=== PATIENT | female | born 1985 | race African-American/Black ===

== ENCOUNTER 2016-12-22 02:38 | Inpatient (IN) | payer MEDICAID ==
--- NOTE | ~2016-12-22 | PN ---
Unit #: [id number] #: [id number] Patient: KRYSTAL JEFFERY [id number] [facility] [address] [place] [address] [id number] I MR#: [id number] NAME: KRYSTAL JEFFERY ROOM: [facility] Age: 31 Sex: F Admission Date: 12/22/2016 : 1985 Attending Physician: Christiano Madrid M.D. Admitting Physician: Christiano Madrid M.D. Primary Care Physician: Primary Care Physician Carol MENDOZA NOTES DATE 12/25/2016 DISCUSSION Ms. Flores is a 31year-old female seen on 12/25/2016. The patient interviewed, chart reviewed. Obtained information from nursing staff. The patient was able to answer questions appropriately in short sentences. The patient reported that she would like to go home. The patient reports medication helping her complaining of tummy ache. The patient is scheduled to have a family session today. The patient is compliant with medication. Yesterday medication lowered to the patient's mood and behavior. The patient was able to sleep good, compliant with medication, no agitation. Currently on Lorazepam which was lowered to 1 mg at bedtime, Zyprexa 10 mg at bedtime, Cogentin 1 mg twice daily, Haldol was discontinued, Desyrel 100 mg at bedtime. Complete review of systems unremarkable. MENTAL STATUS EXAMINATION General appearance, the patient dressed in hospital attire. Attention span and concentration poor. Oriented to self and place. Mood and affect flat. Speech monotone. Thought process concrete. The patient denied any thoughts of harming self or others but somewhat guarded, paranoid, confused. Recent and remote memory fair to poor. Insight and judgement fair to poor. DIAGNOSES Psychosis NOS Rule out schizophrenia Rule our bipolar mood disorder ASSESSMENT/PLAN Advise to continue with current medication and therapeutic protocol. If needed consider further adjustment of medication. Dictated by... Guera Tucker/inder TD: 12/28/2016 01:42 JOB #: [id number] Unit #: [id number] #: [id number] Patient: KRYSTAL JEFFERY PEAADRIA PROGRESS NOTES Page 1 of 1 X Christiano Madrid MD X PROGRESS NOTE
--- NOTE | ~2016-12-22 | HP ---
Unit #: [id number] #: [id number] Patient: KRYSTAL JEFFERY [id number] [place] [address] [id number] MR#: [id number] NAME: KRYSTAL JEFFERY ROOM: 16 Age: 31 Sex: F Admission Date: 12/22/2016 : 1985 Attending Physician: Christiano Madrid M.D. Admitting Physician: Christiano Madrid M.D. Primary Care Physician: Primary Care Physician No HISTORY AND PHYSICAL HISTORY OF PRESENT ILLNESS Krystal is a 31 year old immigrant from an unknown country admitted to [address] [place] [address] with psychosis. She is a poor historian so her history is taken from her chart. Exam is limited and what little bit I can I can obtain from her is through her websphere architect. 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 PAST SURGICAL HISTORY Nothing known. ALLERGIES No known drug allergies. SOCIAL HISTORY It is unknown if she smokes, drinks alcohol or uses illicit drugs. FAMILY HISTORY Medically not known. REVIEW OF SYSTEMS She does not answer any questions appropriately. There have been no reports of nausea, vomiting or diarrhea. She has had no cough or increased temperature. Nursing staff did report a thick white vaginal discharge when they showered her. CURRENT MEDICATIONS 1. Desyrel 100 mg q.h.s. 2. Zyprexa 10 mg b.i.d. 3. Lorazepam 1 mg t.i.d. 4. Cogentin 1 mg t.i.d. 5. Haldol 5 mg t.i.d. 6. Milk of Magnesia p.r.n. 7. Maalox p.r.n. 8. Tylenol p.r.n. 9. Diflucan 150 mg q day times three doses PHYSICAL EXAMINATION GENERAL: Alert, thin, in no apparent distress. VITAL SIGNS: Blood pressure 122/76, heart rate 100, respirations 16, temperature 100.5. SKIN: Unable to assess. Unit #: [id number] #: [id number] Patient: KRYSTAL JEFFERY HEENT: Normocephalic. TMs not viewed. Oral and nasal passages clear. Conjunctivae clear. Pupils equal, round and reactive to clear. Left eye is sclerosed. Right pupil reactive to light. NECK: Supple without lymphadenopathy or thyromegaly. HEART: Unable to assess. LUNGS: Unable o assess. ABDOMEN: Soft, nontender. : Unable to assess. EXTREMITIES: Moves all extremities without focal deficit. NEUROLOGICAL: Unable to complete extended exam. IMPRESSION Psychiatric admission RECOMMENDATIONS PSYCHIATRIC: Per psychiatrist. MEDICAL: I see no contraindications to participating in facility's activities. MEDICAL PROGNOSIS Good. MEDICAL CONDITION Stable. Dictated by... Naila Garza P.A.-C. for Guera Terrazas/inder TD: 12/23/2016 22:53 JOB #: [id number] HISTORY AND PHYSICAL Page 1 of 1 X Naila Garza X HISTORY AND PHYSICAL
--- NOTE | ~2016-12-22 | PN ---
Unit #: [id number] #: [id number] Patient: KRYSTAL JEFFERY [id number] [facility] [address] [place] [address] [id number] I MR#: [id number] NAME: KRYSTAL JEFFERY ROOM: [facility] Age: 31 Sex: F Admission Date: 12/22/2016 : 1985 Attending Physician: Christiano Madrid M.D. Admitting Physician: Christiano Madrid M.D. Primary Care Physician: Primary Care Physician Carol MENDOZA NOTES DATE OF SERVICE 12/23/2016 DISCUSSION Patient dressed in hospital attire. Mood sad, dysphoric, flat affect, guarded. Patient was staring, refused to answer any questions. Patient also speaks a different language, but almost guarded, flat affect, but compliant with medication this morning and compliant with eating. Needing redirection, confused, isolative, making needs known, showing some improvement but still guarded, paranoid. COMPLETE REVIEW OF SYSTEMS Unremarkable. MENTAL STATUS EXAMINATION GENERAL APPEARANCE: Patient dressed in hospital attire. ATTENTION SPAN AND CONCENTRATION: Poor. ORIENTATION: Unable to assess. MOOD AND AFFECT: Flat. SPEECH: Nonverbal at this time. THOUGHT PROCESS/THOUGHT CONTENT: Guarded, paranoid, attending to internal stimuli. RECENT AND REMOTE MEMORY: Poor. INSIGHT AND JUDGMENT: Impaired. DIAGNOSES Psychosis, NOS Rule out schizophrenia, chronic, paranoid type ASSESSMENT/PLAN Advise to continue with current medication and therapeutic protocol. Plan to get more information with the help of primer inserting machine adjuster. At this time, patient refusing to talk. Continue with the inpatient programming for safety. Dictated by... Christiano Madrid M.D. [facility] [place] Unit #: [id number] #: [id number] Patient: KRYSTAL JEFFERY TD: 12/24/2016 02:49 JOB #: [id number] CHELA MENDOZA NOTES Page 1 of 1 X Christiano Madrid MD PROGRESS NOTE
--- NOTE | ~2016-12-22 | PA ---
Unit #: [id number] #: [id number] Patient: KRYSTAL JEFFERY [id number] [facility] [address] [place] [address] [id number] I MR#: [id number] NAME: KRYSTAL JEFFERY ROOM: P116 Age: 31 Sex: F Admission Date: 12/22/2016 : 1985 Date of Assessment: 12/22/2016 Attending Physician: Christiano Madrid M.D. Admitting Physician: Christiano Madrid M.D. Primary Care Physician: Primary Care Physician No PSYCHIATRIC ASSESSMENT INFORMANTS The patient's reliability, poor; chart reliability, good. CHIEF COMPLAINT None but presentation with psychosis. HISTORY OF PRESENT ILLNESS Ms. Danielle is a 31-year-old female, unable to give any reliable information, presented with psychotic symptom. The patient speaks Swahili. [place] The patient was at [facility] a week ago due to similar behavior. The patient was prescribed Ativan to help her sleep. The patient has one pill left. The patient did not participate in assessment. She has kicked the information security architect, spit on the nurses. The patient according to the was talking to TV, not eating, throwing items, confused, paranoid, exhibiting bizarre behavior, bizarre thought process. The patient when seen in the hospital was agitated, psychotic, aggressive. Needed Haldol 10 mg, Cogentin 1 mg, Ativan 1 mg IM. The patient moved to .. one and half years ago. Lived in [place] for 3 months. Family support in [place] with . The patient needing inpatient admission at this time for psychiatric stabilization. PAST PSYCHIATRIC HISTORY Remarkable for history of previous treatment as mentioned above. No other details known at this time. FAMILY HISTORY AND SOCIAL HISTORY The patient has a good support system. No known history of any abuse. No family psychiatric illness available at this time. MEDICAL HISTORY Unremarkable for any chronic medical illness. Musculoskeletal; muscle strength and tone, no atrophy or abnormal movement. Gait normal. MEDICATION HISTORY None. ALLERGIES No known drug allergies. SUBSTANCE ABUSE HISTORY None. Unit #: [id number] #: [id number] Patient: BADISIRE,KRYSTAL REVIEW OF SYSTEMS HEENT: Eyes, clear. Ears, nose, mouth, and throat; clear. CARDIOVASCULAR: Unremarkable. RESPIRATORY: Unremarkable. GI: Unremarkable. : Unremarkable. SKIN: Unremarkable. LYMPH NODE: Unremarkable. NEUROLOGIC: Unremarkable. ENDOCRINE: Unremarkable. HEMATOLOGIC: Unremarkable. ALLERGIC/IMMUNOLOGIC: Unremarkable. MUSCULOSKELETAL: Muscle strength and tone, no atrophy or abnormal movement. Gait normal. MENTAL STATUS EXAMINATION CONSTITUTIONAL: Measurement of vital signs; temperature 100.5, pulse 103, respirations 18, blood pressure 123/76. GENERAL APPEARANCE: The patient dressed casually. The patient did not show any facial deformity. MUSCULOSKELETAL: Please see above. PSYCHIATRIC EXAMINATION Description of speech; nonverbal, at this time not talking. Description of thought process, unable to assess. Description of association, guarded. Description of abnormal psychotic thinking; guarded, attending to internal stimuli, paranoid, disorganized behavior, disorganized thought process. Description of the patient's judgment; concerning everyday activity, poor. Social situation, poor. Concerning psychiatric condition, poor. Complete mental status examination; orientation, unable to assess. Recent and remote memory, unable to assess. Attention span and concentration, poor. Language, unable to assess. Fund of knowledge, unable to assess. Vocabulary, unable to assess. Mood and affect, labile. Insight and judgment, impaired. ASSETS AND LIABILITIES Assets; young age, good physical health, good support system. Liability; history of psychosis. ADMITTING DIAGNOSES Psychiatric: 1. Psychosis, not otherwise specified, F29.0. 2. Rule out schizophrenia, chronic paranoid type. 3. Rule out bipolar mood disorder. 4. Rule out substance abuse disorder. Secondary diagnosis: Deferred. Medical diagnosis: None. Stressors: Psychosocial stressors. PSYCHIATRIC PLAN AND TREATMENT GOAL 1. Advised to admit the patient on the inpatient unit. Provide safe, supportive, and structured environment. 2. Ordered labs; CBC, CMP, UA, UDS, and test. Unit #: [id number] #: [id number] Patient: KRYSTAL JEFFERY 3. Precaution for aggression, self-harm. 4. Advised to start the patient on Desyrel 100 mg at bedtime, Zyprexa 10 mg b.i.d., lorazepam 1 mg t.i.d., Cogentin 1 mg t.i.d., Haldol 5 mg t.i.d. Advised to hold medication if the patient too sleepy. The patient to attend all the programing. We will involve science interpreter to get more information from the patient. At this time, the patient is not talking. Treatment goal to attain euthymic mood, gain insight into her problem, and learn coping skills. DISCHARGE PLAN Plan to stabilize the patient and consider followup in outpatient program. ESTIMATED LENGTH OF STAY 2 weeks. Dictated by... Guera Tucker/suki TD: 12/23/2016 02:41 JOB #: [id number] PSYCHIATRIC ASSESSMENT Page 1 of 1 X Christiano Madrid MD X PSYCHIATRIC ASSESSMENT
--- NOTE | ~2016-12-22 | DS ---
Unit #: [id number] #: [id number] Patient: KRYSTAL JEFFERY [id number] [facility] [address] [place] [address] [id number] I MR#: [id number] NAME: KRYSTAL JEFFERY ROOM: [facility] Age: 31 Sex: F Admission Date: 12/22/2016 : 1985 Discharge Date: 12/27/2016 Attending Physician: Christiano Madrid M.D. Primary Care Physician: Primary Care Physician No DISCHARGE SUMMARY REASON FOR ADMISSION Psychosis. DIAGNOSTIC STUDIES LABORATORY RESULTS: Unremarkable. HOSPITAL COURSE The patient was admitted to inpatient unit on 12/22/2016 and discharged on 12/27/2016. The patient was treated on the inpatient unit with group therapy, individual therapy, medication management. The patient speaks Swahili, used administrative support specialist. The patient denied any suicidal or homicidal ideation. Showed improvement. Subsequently, the patient was discharged with a plan to follow up in outpatient program. DISCHARGE MEDICATIONS Desyrel 100 mg at bedtime for sleep, Cogentin 1 mg at bedtime for EPS symptom, Zyprexa 10 mg at bedtime for mood stabilization, Colace 100 mg b.i.d. for constipation. DISCHARGE DIAGNOSES Psychiatric: 1. Psychosis, not otherwise specified, F29.0. 2. Rule out schizophrenia, chronic paranoid type, F20.0. 3. Rule out bipolar mood disorder. Secondary diagnosis: Deferred. Medical diagnosis: None. Stressors: Psychosocial stressors. DISCHARGE INSTRUCTIONS The patient to follow up in outpatient clinic as per 7th grade social studies teacher. CONDITION ON DISCHARGE The patient was pleasant and cooperative. Denied any psychotic symptom or any suicidal ideation. PROGNOSIS Guarded. DIET AND ACTIVITY As tolerated. Unit #: [id number] #: [id number] Patient: KRYSTAL JEFFERY Dictated by... Guera Tucker/suki TD: 12/28/2016 05:55 JOB #: [id number] DISCHARGE SUMMARY Page 1 of 1 X Christiano Madrid MD X DISCHARGE SUMMARY
--- NOTE | ~2016-12-22 | PN ---
Unit #: [id number] #: [id number] Patient: KRYSTAL JEFFERY [id number] [facility] [address] [place] [address] [id number] I MR#: [id number] NAME: KRYSTAL JEFFERY ROOM: [facility] Age: 31 Sex: F Admission Date: 12/22/2016 : 1985 Attending Physician: Christiano Madrid M.D. Admitting Physician: Christiano Madrid M.D. Primary Care Physician: Primary Care Physician Carol YORK PROGRESS NOTES DATE OF SERVICE: 12/26/2016 DISCUSSION Ms. Danielle is a 31-year-old female, seen on 12/26/2016. The patient interviewed, chart reviewed, and obtained information from nursing staff. The patient continues to be guarded, paranoid, anxious, nervous, interviewed with the help of nursing informatics clinical analyst. The patient reports having problem with constipation for which magnesium citrate was advised. The patient continues to have thought blocking and paranoia, but maintained safe behavior, no aggression, isolative and guarded. REVIEW OF SYSTEMS Complete review of systems unremarkable. MENTAL STATUS EXAMINATION General appearance, the patient dressed in hospital attire. Attention span and concentration, fair. Oriented in self and place. Mood and affect, labile. Speech, regular rate. Thought process, circumstantial. Association, guarded and paranoid, but denied any thoughts of harming self or others. Recent and remote memory, poor. Insight and judgment, poor. DIAGNOSIS Schizophrenia, chronic paranoid type. ASSESSMENT AND PLAN Advised to continue with current medication and therapeutic protocol. If needed, consider further adjustment of medication. Dictated by... Guera Tucker/suki TD: 12/28/2016 01:11 JOB #: [id number] Unit #: [id number] #: [id number] Patient: KRYSTAL JEFFERY [place]A PROGRESS NOTES Page 1 of 1 X Christiano Madrid MD PROGRESS NOTE
--- NOTE | ~2016-12-22 | PN ---
Unit #: [id number] #: [id number] Patient: KRYSTAL JEFFERY [id number] [facility] [address] [place] [address] [id number] I MR#: [id number] NAME: KRYSTAL JEFFERY ROOM: [facility] Age: 31 Sex: F Admission Date: 12/22/2016 : 1985 Attending Physician: Christiano Madrid M.D. Admitting Physician: Christiano Madrid M.D. Primary Care Physician: Primary Care Physician Carol MENDOZA NOTES DATE 12/24/2016 DISCUSSION Ms. Flores is a 31-year-old female, seen on 12/24/2016. The patient was admitted with psychotic symptoms. The patient is making progress, able to communicate, able to communicate her needs. The patient speaks Swahili. She is able to use a few words. Still isolative, guarded, flat affect, dressed in hospital attire. No agitation or aggression. Vital signs, 97.6, 52, and 119/84. REVIEW OF SYSTEMS Complete review of systems unremarkable. MENTAL STATUS EXAMINATION General appearance: Patient dressed in hospital attire. Attention span and concentration, fair. Orientation, unable to assess. Mood and affect, flat, withdrawn. Speech, minimal. Thought process, circumstantial, guarded. Association, guarded, paranoid, attending to internal stimuli. Recent and remote memory, poor. Insight and judgment, poor. DIAGNOSES 1. Psychosis, NOS. 2. Rule out schizophrenia, chronic paranoid type. ASSESSMENT/PLAN Advised to continue with the current medication combination, if needed consider further adjustment of medication. Dictated by... Guera Tucker/dominique TD: 12/25/2016 07:31 JOB #: [id number] Unit #: [id number] #: [id number] Patient: KRYSTAL JEFFERY [place] PROGRESS NOTES Page 1 of 1 X Christiano Madrid MD PROGRESS NOTE
[2016-12-22 14:09] LABS: TMH HEPATITIS B SURFACE AG -JH Negative (Negative); TMH HEPATITIS C AB - JH Negative (Negative)
== END 2016-12-27 15:15 | disposition home or self-care (01) | DRG 885 ==
LOC: P1S 04:20 → P2L 04:20 → P1S 09:35 → P2L 12-25 18:01
PROVIDERS: Psychiatry & Neurology Psychiatry
DX: F29 Unspecified psychosis not due to a substance or known physiological condition (principal); F31.89 Other bipolar disorder; F20.0 Paranoid schizophrenia; F19.10 Other psychoactive substance abuse, uncomplicated; H54.42 Blindness, left eye, normal vision right eye
CPT/HCPCS: 86803; 87340; 87806; J0515; J1630; J2060

== ENCOUNTER 2017-01-02 04:00 | Inpatient (IN) | payer MEDICAID ==
--- NOTE | ~2017-01-02 | PN ---
Unit #: [id number] #: [id number] Patient: KRYSTAL JEFFERY [id number] [facility] [address] [place] [address] [id number] I MR#: [id number] NAME: KRYSTAL JEFFERY ROOM: [facility] Age: 32 Sex: F Admission Date: 01/02/2017 : 1985 Attending Physician: Christiano Madrid M.D. Admitting Physician: Christiano Madrid M.D. Primary Care Physician: Generic Doctor Not In System [facility] PROGRESS NOTES DATE OF SERVICE: 01/06/2017 DISCUSSION Ms. Danielle is a 31-year-old female, seen on 01/06/2017. The patient's affect was bright and mood good, but still guarded, paranoid, and flat affect. The patient reports medication is helping her, but still seclusive and isolative. No side effects from medication. The patient withdrawn and isolative. REVIEW OF SYSTEMS Complete review of systems unremarkable. MENTAL STATUS EXAMINATION General appearance, the patient dressed in hospital attire. Attention span and concentration, poor. Orientation in self and place. Mood and affect, labile. Speech; rapid, but slow in volume, increased in rate. Thought process; circumstantial, guarded, and paranoid. Still having problem with anxiety, delusions, and paranoia. Recent and remote memory, poor. Insight and judgment, poor. DIAGNOSES Psychosis, not otherwise specified; mood disorder, not otherwise specified; rule out bipolar mood disorder; and schizophrenia, chronic paranoid type. ASSESSMENT AND PLAN Advised to continue with current medication and therapeutic protocol. If needed, consider further adjustment of medication. Dictated by... Guera Tucker/suki TD: 01/06/2017 18:10 JOB #: [id number] Unit #: [id number] #: [id number] Patient: KRYSTAL JEFFERY [facility] PROGRESS NOTES Page 1 of 1 X Christiano Madrid MD PROGRESS NOTE
--- NOTE | ~2017-01-02 | PN ---
Unit #: [id number] #: [id number] Patient: KRYSTAL JEFFERY [id number] [facility] [address] [place] [address] [id number] I MR#: [id number] NAME: KRYSTAL JEFFERY ROOM: [facility] Age: 32 Sex: F Admission Date: 01/02/2017 : 1985 Attending Physician: Christiano Madrid M.D. Admitting Physician: Guera Tucker PROGRESS NOTES DATE OF SERVICE: 01/11/2017 DISCUSSION Ms. Flores is a 32-year-old female, seen on 01/11/2017. The patient interviewed, chart reviewed, and obtained information from nursing staff. The patient compliant and cooperative. Vital signs stable. The patient is tolerating medication fairly well. Still seclusive, isolative, and guarded, but no thoughts of harming self or others. REVIEW OF SYSTEMS Complete review of systems unremarkable. MENTAL STATUS EXAMINATION General appearance, the patient dressed in hospital attire. Attention span and concentration, fair. Oriented in place and person. Mood and affect, sad and depressed. Speech, monotone. Thought process, concrete. The patient denied any thoughts of harming self or others, but guarded. Recent and remote memory, poor. Insight and judgment, poor. DIAGNOSIS Bipolar mood disorder, not otherwise specified. ASSESSMENT AND PLAN Advised to continue with current medication and therapeutic protocol. If needed, consider further adjustment of medication. Dictated by... Guera Tucker/suki TD: 01/11/2017 13:17 JOB #: [id number] Unit #: [id number] #: [id number] Patient: KRYSTAL JEFFERY PROGRESS NOTES Page 1 of 1 X Christiano Madrid MD PROGRESS NOTE
--- NOTE | ~2017-01-02 | PN ---
Unit #: [id number] #: [id number] Patient: KRYSTAL JEFFERY [id number] [facility] [address] [place] [address] [id number] I MR#: [id number] NAME: KRYSTAL JEFFERY ROOM: [facility] Age: 32 Sex: F Admission Date: 01/02/2017 : 1985 Attending Physician: Christiano Madrid M.D. Admitting Physician: Guera Tucker PROGRESS NOTES DATE OF SERVICE: 01/09/2017 DISCUSSION Ms. Flores is a 32-year-old female, seen on 01/09/2017. The patient interviewed, chart reviewed, and obtained information from nursing staff. The patient is compliant, cooperative, still isolative, guarded, flat affect, but no thoughts of harming self or others. Redirectable, cooperative. REVIEW OF SYSTEMS Complete review of systems, unremarkable. MENTAL STATUS EXAMINATION General appearance, the patient dressed in hospital attire. Attention span and concentration, poor. Oriented in place and person. Mood and affect, sad and depressed. Speech, monotone. Thought process, concrete. Denied any thoughts of harming self or others, but guarded and paranoid. Recent and remote memory, poor. Insight and judgment, poor. DIAGNOSES 1. Mood disorder, not otherwise specified. 2. Psychosis, not otherwise specified. ASSESSMENT AND PLAN Advised to continue with current medication and therapeutic protocol. If needed, consider further adjustment of medication. Dictated by... Guera Tucker/suki TD: 01/10/2017 18:48 JOB #: [id number] Unit #: [id number] #: [id number] Patient: KRYSTAL JEFFERY [place] PROGRESS NOTES Page 1 of 1 X Christiano Madrid MD PROGRESS NOTE
--- NOTE | ~2017-01-02 | PN ---
Unit #: [id number] #: [id number] Patient: KRYSTAL JEFFERY [id number] [facility] [address] [place] [address] [id number] I MR#: [id number] NAME: KRYSTAL JEFFERY ROOM: P259 Age: 32 Sex: F Admission Date: 01/02/2017 : 1985 Attending Physician: Christiano Madrid M.D. Admitting Physician: Christiano Madrid M.D. Primary Care Physician: Generic Doctor Not In System [facility] PROGRESS NOTES DATE OF SERVICE: 01/07/2017 DISCUSSION Ms. Wiggins is a 32-year-old female, seen on 01/07/2017. The patient interviewed, chart reviewed, and obtained information from nursing staff. The patient is still guarded, isolative, flat affect, anxiety, and paranoia, but getting better. Tolerating medication fairly well. The patient reports that she would like to go to correction once she is discharged. REVIEW OF SYSTEMS Complete review of systems unremarkable. MENTAL STATUS EXAMINATION General appearance, the patient dressed in hospital attire. Attention span and concentration, fair. Oriented in place and person. Mood and affect, sad, dysphoric, and flat. Speech, monotone. Thought process, concrete. The patient was somewhat guarded and paranoid, but denied any thoughts of harming self or others. Recent and remote memory, poor. Insight and judgment, poor. DIAGNOSES Psychosis, not otherwise specified; mood disorder, not otherwise specified; rule out bipolar mood disorder; and rule out schizophrenia. ASSESSMENT AND PLAN Advised to continue with current medication and therapeutic protocol. If needed, consider further adjustment of medication. Dictated by... Guera Tucker/suki TD: 01/08/2017 20:07 JOB #: [id number] Unit #: [id number] #: [id number] Patient: KRYSTAL JEFFERY [place]A PROGRESS NOTES Page 1 of 1 X Christiano Madrid MD PROGRESS NOTE
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
--- NOTE | ~2017-01-02 | PN ---
Unit #: [id number] #: [id number] Patient: KRYSTAL JEFFERY [id number] [facility] [address] [place] [address] [id number] MR#: [id number] NAME: KRYSTAL JEFFERY ROOM: [facility] Age: 32 Sex: F Admission Date: 01/02/2017 : 1985 Attending Physician: Christiano Madrid M.D. Admitting Physician: Christiano Madrid M.D. Primary Care Physician: Generic Doctor Not In System [facility] PROGRESS NOTES DATE OF SERVICE 01/05/2017 DISCUSSION Ms. Flores is a 31-year-old female seen on 01/05/2017. The patient interviewed, chart reviewed. Obtained information from nursing staff. The patient compliant, cooperative. Mood sad, dysphoric, flat affect, guarded. The patient was interviewed with the help of wood boatbuilder. Seemed somewhat better but still paranoia, guarded, isolative. Some delusional period. The patient reported that she wants to get away from her and try to kill herself. The patient is still having depressive symptoms and psychotic symptom. Complete Review of Systems: Unremarkable. MENTAL STATUS EXAMINATION General Appearance: The patient dressed in hospital attire. Attention span, concentration: Fair. Oriented in self and place. Mood and affect labile. Speech: Rapid. Thought process: Circumstantial. The patient reported having suicidal ideation, guarded, paranoia. Recent and remote memory: Poor. Insight and judgment: Poor. DIAGNOSES 1. Psychosis not otherwise specified. 2. Mood disorder not otherwise specified. 3. Rule out schizophrenia, chronic, paranoid type. 4. Bipolar mood disorder not otherwise specified. ASSESSMENT/PLAN Advising at this time to add Ativan 0.5 mg 3 times a day due to severe anxiety and add haloperidol 2 mg 3 times a day for psychosis as the patient reported that she feels that somebody is trying to get her. Also, reported that she feels as though the food is poisoned. We will closely monitor mood and behavior. Dictated by... Christiano Madrid M.D. SZC/bzg TD: 01/07/2017 06:58 Unit #: [id number] #: [id number] Patient: KRYSTAL JEFFERY JOB #: [id number] [facility] PROGRESS NOTES Page 1 of 1 X Christiano Madrid MD PROGRESS NOTE
--- NOTE | ~2017-01-02 | DS ---
Unit #: [id number] #: [id number] Patient: KRYSTAL JEFFERY [id number] [place] [address] [id number] I MR#: [id number] NAME: KRYSTAL JEFFERY ROOM: [facility] Age: 32 Sex: F Admission Date: 01/02/2017 : 1985 Discharge Date: 01/12/2017 Attending Physician: Christiano Madrid M.D. Primary Care Physician: Generic Doctor Not In System DISCHARGE SUMMARY REASON FOR ADMISSION Psychosis. DIAGNOSTIC STUDIES LABORATORY RESULTS: Unremarkable. HOSPITAL COURSE The patient was admitted to inpatient unit on 01/02/2017 and discharged on 01/12/2017. The patient was treated on the inpatient unit with group therapy, individual therapy, structured milieu. The patient responded well with the above modalities of treatment. The patient was able to communicate and tolerating medication fairly well. Subsequently, the patient was discharged with a plan to follow up in outpatient program. DISCHARGE MEDICATIONS Haldol 2 mg b.i.d. for psychosis, Colace 100 mg b.i.d. for constipation, Zyprexa 10 mg at bedtime for psychosis, Cogentin 1 mg at bedtime for EPS symptom, trazodone 100 mg at bedtime for sleep. The patient was discharged on 2 antipsychotic as the patient did not respond with one. The patient was failed the trial of Haldol, Zyprexa, and Risperdal. Recommending to taper of Haldol once the patient is stable for at least 6 months documentation, so the patient is not a candidate for clozapine because of noncompliance. DISCHARGE DIAGNOSES Psychiatric: Bipolar mood disorder, not otherwise specified, F31.9; rule out schizoaffective disorder; rule out schizophrenia. Secondary diagnosis: Deferred. Medical diagnosis: None. Stressors: Psychosocial stressors. DISCHARGE INSTRUCTIONS The patient to follow up in outpatient clinic as per social organization professor. CONDITION ON DISCHARGE The patient was pleasant and cooperative. Denied any psychotic symptom or any suicidal ideation. PROGNOSIS Guarded. Unit #: [id number] #: [id number] Patient: KRYSTAL JEFFERY DIET AND ACTIVITY As tolerated. Dictated by... Guera Tucker/suki TD: 01/12/2017 23:16 JOB #: [id number] DISCHARGE SUMMARY Page 1 of 1 X Christiano Madrid MD DISCHARGE SUMMARY
--- NOTE | ~2017-01-02 | PN ---
Unit #: [id number] #: [id number] Patient: KRYSTAL JEFFERY [id number] [facility] [address] [place] [address] [id number] I MR#: [id number] NAME: KRYSTAL JEFFERY ROOM: [facility]259 Age: 32 Sex: F Admission Date: 01/02/2017 : 1985 Attending Physician: Christiano Madrid M.D. Admitting Physician: Christiano Madrid M.D. Primary Care Physician: Generic Doctor Not In System [facility] PROGRESS NOTES DATE 01/10/2017 DISCUSSION Ms. Flores is a 32-year-old female seen on 01/10/2017. The patient interviewed, chart reviewed. Obtained information from nursing staff. The patient compliant and cooperative but still isolative, guarded, flat affect somewhat paranoid but denied any thoughts of harming self or others. The patient reported medication is making her sleepy. The patient's vital signs stable. Complete review of systems unremarkable. MENTAL STATUS EXAMINATION General appearance, the patient dressed casually. Attention span and concentration fair. Oriented to time, place and person. Mood and affect sad, dysphoric. Speech monotone. Thought process concrete, guarded, paranoid. Recent and remote memory poor. Insight and judgement poor. DIAGNOSES Mood disorder NOS Psychosis NOS Rule out bipolar mood disorder ASSESSMENT/PLAN Advise to continue with current medication with a plan to change Haldol to 2 mg at bedtime and discontinue Ativan. Monitor the patient's mood and behavior closely. Continue with the other medications same. Dictated by... Guera Tucker/inder TD: 01/11/2017 13:17 JOB #: [id number] Unit #: [id number] #: [id number] Patient: KRYSTAL JEFFERY [facility] PROGRESS NOTES Page 1 of 1 X Christiano Madrid MD PROGRESS NOTE
--- NOTE | ~2017-01-02 | PN ---
Unit #: [id number] #: [id number] Patient: KRYSTAL JEFFERY [id number] [facility] [address] [place] [address] [id number] I MR#: [id number] NAME: KRYSTAL JEFFERY ROOM: [facility] Age: 31 Sex: F Admission Date: 01/02/2017 : 1985 Attending Physician: Christiano Madrid M.D. Admitting Physician: Christiano Madrid M.D. Primary Care Physician: Generic Doctor Not In System [facility] PROGRESS NOTES DATE 01/04/2017 DISCUSSION Ms. Flores is a 31-year-old female seen on 01/04/2017. The patient dressed in hospital attire. The patient was almost whispering, guarded, paranoid. The patient still having difficulty with eating, taking medication, isolative, guarded, very paranoid. The patient reported problems with her stomach, reported problem with constipation. The patient was somewhat vague about her in giving information. Mood labile, guarded. Complete review of systems unremarkable. MENTAL STATUS EXAMINATION General appearance, the patient dressed in hospital attire. Attention span and concentration fair. Oriented to self and place. Mood and affect labile. Speech is slow in volume and rate. Thought process circumstantial, guarded, paranoid attending to internal stimuli but denied any thoughts of harming self or others. Recent and remote memory poor. Insight and judgement poor. DIAGNOSES Psychosis NOS Mood disorder NOS ASSESSMENT/PLAN Advise to continue with current medication and therapeutic protocol. If needed consider further adjustment of medication. The patient is currently on Zyprexa, Cogentin, Desyrel, Colace combination. Dictated by... Guera Tucker/inder TD: 01/05/2017 21:31 JOB #: [id number] Unit #: [id number] #: [id number] Patient: KRYSTAL JEFFERY [facility] PROGRESS NOTES Page 1 of 1 X Christiano Madrid MD PROGRESS NOTE
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
--- NOTE | ~2017-01-02 | PN ---
Unit #: [id number] #: [id number] Patient: KRYSTAL JEFFERY [id number] [facility] [address] [place] [address] [id number] I MR#: [id number] NAME: KRYSTAL JEFFERY ROOM: P259 Age: 32 Sex: F Admission Date: 01/02/2017 : 1985 Attending Physician: Christiano Madrid M.D. Admitting Physician: Christiano Madrid M.D. Primary Care Physician: Generic Doctor Not In System [facility] PROGRESS NOTES DATE 01/08/2017 DISCUSSION Ms. Flores is a 32-year-old female seen on 01/08/2017. Patient interviewed. Chart reviewed. Obtained information from nursing staff. Patient continues to be isolative, guarded, flat affect, paranoid but reports making progress. Compliant with medication. Staying by herself. Complete review of system unremarkable. MENTAL STATUS EXAMINATION General appearance, patient dressed in hospital attire. Attention span, concentration fair. Oriented in place and person. Mood and affect labile. Speech monotone. Thought process concrete. Patient denied any thoughts of harming self or others but guarded. Recent and remote memory poor. Insight and judgement poor. DIAGNOSES 1. Psychosis NOS. 2. Mood disorder NOS. 3. Rule out bipolar mood disorder. 4. Schizophrenia, chronic paranoid type. ASSESSMENT/PLAN Advised to continue with current medication and therapeutic protocol. If needed, consider further adjustment of medication. Dictated by... Guera Tucker/nathalia TD: 01/09/2017 20:46 JOB #: [id number] Unit #: [id number] #: [id number] Patient: KRYSTAL JEFFERY [facility] PROGRESS NOTES Page 1 of 1 X Christiano Madrid MD X PROGRESS NOTE
--- NOTE | ~2017-01-02 | PN ---
Unit #: [id number] #: [id number] Patient: KRYSTAL JEFFERY [id number] [facility] [address] [place] [address] [id number] I MR#: [id number] NAME: KRYSTAL JEFFERY ROOM: P259 Age: 32 Sex: F Admission Date: 01/02/2017 : 1985 Attending Physician: Christiano Madrid M.D. Admitting Physician: Christiano Madrid M.D. Primary Care Physician: Generic Doctor Not In System [facility] PROGRESS NOTES DATE 01/08/2017 DISCUSSION Ms. Flores is a 32-year-old female seen on 01/08/2017. Patient interviewed. Chart reviewed. Obtained information from nursing staff. Patient continues to be sad, dysphoric, withdrawn, isolative, guarded, paranoid. No aggressive behavior. Complete review of system unremarkable. MENTAL STATUS EXAMINATION General appearance, patient dressed casually. Attention span, concentration fair. Oriented in place and person. Mood and affect sad, dysphoric, flat, guarded, paranoid. Recent and remote memory poor. Insight and judgement poor. DIAGNOSES 1. Psychosis NOS. 2. Mood disorder NOS. 3. Rule out bipolar mood disorder. 4. Schizophrenia, chronic, paranoid type. ASSESSMENT/PLAN Advised to continue with current medication and therapeutic protocol. If needed, consider adjustment of medication. Dictated by... Guera Tucker/nathalia TD: 01/09/2017 20:50 JOB #: [id number] Unit #: [id number] #: [id number] Patient: KRYSTAL JEFFERY [facility] PROGRESS NOT[facility] Page 1 of 1 X Christiano Madrid MD PROGRESS NOTE
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
[2017-01-04 09:40] LABS: URINE APPEARANCE CLEAR; URINE BILIRUBIN NEG (NEG); URINE BLOOD 3+ (NEG); URINE COLOR YELLOW; URINE GLUCOSE NEG (NEG); URINE KETONE NEG (NEG); URINE LEUKOCYTE ESTERASE 2+ (NEG); URINE NITRATE NEG (NEG); URINE PROTEIN NEG (NEG); URINE SPECIFIC GRAVITY 1.006 (1.003-1.035); URINE UROBILINOGEN 0.2 MG/DL (NEG)
[2017-01-04 09:44] LABS: U HYALINE CASTS AUWI 0-2 /[LPF]; URINE BACTERIA AUWI 1+ (NEGATIVE); URINE SQUAMOUS EPITHELIAL CELL NONE SEEN /[HPF]
[2017-01-04 10:24] LABS: AMPHETAMINE NEG (NEG); BARBITURATES NEG (NEG); BENZODIAZEPINES NEG (NEG); COCAINE NEG (NEG); MARIJUANA NEG (NEG); OPIATES NEG (NEG); TRICYCLIC ANTIDEPRESSANTS NEG (NEG); U METHADONE NEG (NEG)
== END 2017-01-12 11:30 | DRG 885 ==
LOC: P2L 12:14
PROVIDERS: Psychiatry & Neurology Psychiatry
DX: F39 Unspecified mood [affective] disorder (principal); F20.0 Paranoid schizophrenia; F31.9 Bipolar disorder, unspecified; F29 Unspecified psychosis not due to a substance or known physiological condition
CPT/HCPCS: 80307; 81003